=== PATIENT | female | born 1985 | race Caucasian/White ===

== ENCOUNTER 2022-01-07 10:03 | Inpatient (IN) | payer BC ==
[~2022-01-07] VITALS: Ht 167.6 cm; Wt 72.6 kg
[2022-01-07 11:17] LABS: BASOPHILS % 0.9 % (0.0-2.0); EOSINOPHILS % 3.2 % (0.0-5.0); HEMATOCRIT. 40.6 % (36.0-48.0); HEMOGLOBIN. 13.8 g/dL (12.0-16.0); LYMPHOCYTES % 44.8 % (20.0-50.0); MEAN CORPUSCULAR HEMOGLOBIN 30.9 pg (28.0-32.0); MEAN PLATELET VOLUME 8.3 fl (7.4-10.4); MONOCYTES % 6.7 % (2.0-8.0); NEUTROPHILS % 44.4 % (40.0-76.0); PLATELET 259 x1000/uL (130-400); RED BLOOD CELL COUNT 4.46 mill/uL (4.2-5.4); RED CELL DISTRIBUTION WIDTH 13.5 % (11.6-14.6)
[2022-01-07 11:29] LABS: CHLORIDE 109 mEq/L (98-107)
[2022-01-07] MEDS ORDERED: IOHEXOL-350 100 ML BOTTLE ONE (11:40)
[2022-01-07 11:42] LABS: ETHANOL BLOOD < 10 mg/dL
[2022-01-07 12:45] LABS: HCG SCREEN NEGATIVE
[2022-01-07] MEDS ORDERED: ASPIRIN 325MG EC TABLET PO ONE (13:00)
[2022-01-07] MEDS ORDERED: IPRATROPIUM/ALBUTEROL 0.5-3(2.5)MG/3ML NEB NEB PRN (14:00)
[2022-01-07] MEDS ORDERED: MAGNESIUM/ALUMINUM HYDROXIDE/SIMETHICONE 30ML UDC PO PRN (14:00)
[2022-01-07] MEDS ORDERED: CLONIDINE 0.1MG TABLET PO PRN (14:00)
[2022-01-07] MEDS ORDERED: NITROGLYCERIN 0.4MG TABLET SL SL PRN (14:00)
[2022-01-07] MEDS ORDERED: KETOROLAC 15MG/ML VIAL IV PRN (14:00)
[2022-01-07] MEDS ORDERED: ONDANSETRON HCL 4MG/2ML INJ IV PRN (14:00)
[2022-01-07] MEDS ORDERED: ACETAMINOPHEN 325MG TABLET PO PRN ×2 (14:00)
[2022-01-07] MEDS ORDERED: DOCUSATE SODIUM 100MG CAPSULE PO PRN (14:00)
[2022-01-07] MEDS ORDERED: GUAIFENESIN 200MG/10ML SUGAR FREE UDC PO PRN (14:00)
[2022-01-07 14:05] VITALS: BP 110/72
[2022-01-07 14:14] VITALS: BP 110/72
[2022-01-07 14:28] LABS: T4 FREE 1.14 ng/dL (0.76-1.46)
[2022-01-07 14:38] LABS: FOLIC ACID (FOLATE) SERUM >20 ng/mL ng/mL (>5.38); VITAMIN B12 SERUM 430 pg/mL (211-911)
[2022-01-07] MEDS: ENOXAPARIN 40MG/0.4ML SYR SUBCUT SCH ×2 (14:57→15:00)
[2022-01-07 16:15] VITALS: BP 107/77
[2022-01-07 16:46] LABS: CLARITY URINE CLEAR (CLEAR); COLOR URINE YELLOW (YELLOW); KETONES URINE NEGATIVE (NEGATIVE); LEUKOCYTE ESTERASE URINE NEGATIVE (NEGATIVE); NITRITE URINE NEGATIVE (NEGATIVE); OCCULT BLOOD URINE NEGATIVE (NEGATIVE); PROTEIN URINE NEGATIVE (NEGATIVE); SPECIFIC GRAVITY URINE 1.017 (1.005-1.030); UROBILINOGEN URINE 0.2 E.U./dL (0.2-1.0)
[2022-01-07 16:57] LABS: *AMPHETAMINES SCREEN URINE NEGATIVE (NEGATIVE); *BARBITURATES SCREEN URINE NEGATIVE (NEGATIVE); *BENZODIAZEPINES SCREEN URINE NEGATIVE (NEGATIVE); *COCAINE SCREEN URINE NEGATIVE (NEGATIVE); CANNABINOID URINE SCREEN NEGATIVE (NEGATIVE); METHADONE URINE SCREEN NEGATIVE (NEGATIVE); OPIATES URINE SCREEN NEGATIVE (NEGATIVE); PHENCYCLIDINE URINE SCREEN NEGATIVE (NEGATIVE)
[2022-01-07 20:00] VITALS: BP 100/63
[2022-01-07] MEDS ORDERED: ZOLPIDEM TARTRATE 5MG TABLET PO PRN (21:00)
[2022-01-07] MEDS: FAMOTIDINE 20MG TABLET PO SCH (21:22)
[2022-01-07 22:13] LABS: CREATINE KINASE 76 IU/L (26-192); CREATINE KINASE MB FRACTION < 1.0 ng/mL (0.5-3.6)
[2022-01-08] VITALS: BP 100/51
[2022-01-08 02:09] LABS: CREATINE KINASE 62 IU/L (26-192); CREATINE KINASE MB FRACTION < 1.0 ng/mL (0.5-3.6)
[2022-01-08 04:00] VITALS: BP 100/62
[2022-01-08 06:20] LABS: BASOPHILS % 1.8 % (0.0-2.0); EOSINOPHILS % 4.5 % (0.0-5.0); HEMOGLOBIN. 14.1 g/dL (12.0-16.0); LYMPHOCYTES % 41.7 % (20.0-50.0); MEAN CORPUSCULAR HEMOGLOBIN 30.9 pg (28.0-32.0); MEAN CORPUSCULAR VOLUME 91.7 fL (81.0-99.0); MEAN PLATELET VOLUME 8.3 fl (7.4-10.4); MONOCYTES % 7.2 % (2.0-8.0); NEUTROPHILS % 44.8 % (40.0-76.0); PLATELET 257 x1000/uL (130-400); RED BLOOD CELL COUNT 4.58 mill/uL (4.2-5.4); RED CELL DISTRIBUTION WIDTH 13.4 % (11.6-14.6)
[2022-01-08 07:03] LABS: CHLORIDE 110 mEq/L (98-107)
[2022-01-08 07:14] LABS: PHOSPHORUS 4.3 mg/dL (2.5-4.9)
[2022-01-08 08:00] VITALS: BP 122/76
[2022-01-08] MEDS: FAMOTIDINE 20MG TABLET PO SCH (08:39)
[2022-01-08] MEDS ORDERED: ASPIRIN 325MG EC TABLET PO SCH (09:00)
[2022-01-08 12:00] VITALS: BP 122/76
[2022-01-08 14:34] VITALS: BP 122/76
== END 2022-01-08 14:48 | disposition home or self-care (01) | DRG 69 ==
LOC: ER 11:31 → 8WST 12:31 → EDBEDREQ 12:34 → ENRESERV 12:36
PROVIDERS: ADMIT Internal Medicine; ATTEND Internal Medicine
DX: G45.9 Transient cerebral ischemic attack, unspecified (principal); Z86.711 Personal history of pulmonary embolism; Z86.718 Personal history of other venous thrombosis and embolism
CPT/HCPCS: 36415; 70496; 70498; 70551; 71045; 80053; 80061; 80305; 80320; 81003; 82550; 82553; 82607; 82746; 82962; 83036; 83540; 83550; 83735; 84100; 84439; 84443; 84484; 84703; 85025; 85379; 93005; 93306; 93970; 99285; J1650; Q9967; G0480